=== PATIENT | male | born 2005 | race Caucasian/White ===

== ENCOUNTER 2023-05-29 21:51 | Emergency (ER) | payer MEDICAID ==
[~2023-05-29] VITALS: Ht 177.8 cm; Wt 78.0 kg
[2023-05-29 21:55] VITALS: BP 122/80; PULSE 80; RESP 18; TEMP 98.4; O2SAT 100
== END 2023-05-29 22:33 | disposition home or self-care (01) ==
LOC: ER 21:51
DX: F10.129 Alcohol abuse with intoxication, unspecified (principal); Y90.0 Blood alcohol level of less than 20 mg/100 ml
CPT/HCPCS: 99283